=== PATIENT | female | born 1950 | race African-American/Black ===

== ENCOUNTER → 2017-03-16 | Outpatient (CLI) | payer MEDICARE, MEDICAID ==
--- NOTE | 2017-03-17 09:27 | WOMENS IMAGING REPORT ---
EXAM DESCRIPTION: BILAT SCREENING MAMMO W/CAD COMPLETED DATE/TIME: 03/16/2017 9:12 am REASON FOR STUDY: ROUTINE SCREENING; Z12.31 Z12.31 ENCNTR SCREEN MAMMOGRAM FOR MALIGNANT NEOPLASM O F MAGGIE COMPARISON: None. TECHNIQUE: Standard craniocaudal and mediolateral oblique views of each breast recorded using Serometrixa l acquisition. LIMITATIONS: None. FINDINGS: No masses, calcifications or architectural distortion. No areas of suspicion. Read with the assistance of CAD. .[facility] - R2 Cenova Version 1.3 .[facility] - R2 Cenova Version 1.3 .[facility] - R2 Cenova Version 2.4 .[facility] [place] Cenova Version 2.4 .[facility] - R2 Bottom Filler Version 9.2 IMPRESSION: NORMAL MAMMOGRAM. BIRADS 1. BREAST DENSITY: b. There are scattered areas of fibroglandular density. BIRAD: 1 NEGATIVE RECOMMENDATION: ROUTINE SCREENING COMMENT: The patient has been notified of the results by letter per [place] requirements. Additional no tification policies are in place for contacting patient with suspicious or incomplete findings. Quality ID #[id number]: The [employer] recommends an annual screening mammogram for women aged 40 years or over. This facility utilizes a reminder system to ensure that all patients receive reminder letters, and/or direct phone calls for appointments. This includes reminders for routine scr eening mammograms, diagnostic mammograms, or other Breast Imaging Interventions when appropriate. Th is patient will be placed in the appropriate reminder system. The [employer] (ACR) has developed recommendations for screening MRI of the breast s in certain patient populations, to be used in conjunction with mammography. Breast MRI surveillanc e may be appropriate for women with more than 20% lifetime risk of developing breast cancer as deter mined by genetic testing, significant family history of the disease, or history of mantle radiation f or Hodgkins Disease. ACR Practice Guidelines 2008. TECHNICAL DOCUMENTATION: FINDING NUMBER: (1) ASSESSMENT: (1) JOB ID: [id number] [employer]- All Rights Reserved
== END ==
LOC: WI 08:51
PROVIDERS: ATTEND Family Medicine
DX: Z12.31 Encounter for screening mammogram for malignant neoplasm of breast (principal)
CPT/HCPCS: 77067; G0202

== ENCOUNTER → 2018-02-05 | Outpatient (CLI) | payer MEDICARE, MEDICAID ==
--- NOTE | 2018-02-05 10:40 | RADIOLOGY REPORT (SQ) ---
EXAM DESCRIPTION: CHEST PA/LATERAL COMPLETED DATE/TIME: 02/05/2018 10:28 am REASON FOR STUDY: CHRONIC COUGH X 1 MONTH, RT SIDED CHEST PAIN COMPARISON: 09/27/2009 EXAM PARAMETERS: NUMBER OF VIEWS: two views TECHNIQUE: Digital Frontal and Lateral radiographic views of the chest acquired. RADIATION DOSE: NA LIMITATIONS: none FINDINGS: LUNGS AND PLEURA: No opacities, masses or pneumothorax. No pleural effusion. MEDIASTINUM AND HILAR STRUCTURES: No masses or contour abnormalities. HEART AND VASCULAR STRUCTURES: Heart normal size. No evidence for failure. BONES: No acute findings. HARDWARE: None in the chest. OTHER: No other significant finding. IMPRESSION: NO SIGNIFICANT RADIOGRAPHIC FINDING IN THE CHEST. TECHNICAL DOCUMENTATION: JOB ID: [id number] [employer]- All Rights Reserved Reading location - IP/workstation name: [email or web address]
== END ==
LOC: OD 10:10
PROVIDERS: ATTEND Internal Medicine Cardiovascular Disease
DX: R05 Cough (principal); R07.9 Chest pain, unspecified
CPT/HCPCS: 71046

== ENCOUNTER 2018-05-29 15:46 | Emergency (ER) | payer MEDICARE, MEDICAID ==
[2018-05-29] MEDS ORDERED: ACETAMINOPHEN 325 MG TABLET PO ONE (16:22)
[2018-05-29 16:48] LABS: APPEARANCE,URINE SLIGHTLY-CLOUDY; BILIRUBIN,URINE NEGATIVE (NEGATIVE); COLOR,URINE YELLOW; GLUCOSE, URINE NEGATIVE (NEGATIVE); KETONES,URINE NEGATIVE (NEGATIVE); LEUKOCYTE ESTERASE,URINE SMALL (NEGATIVE); NITRITE,URINE NEGATIVE (NEGATIVE); PROTEIN,URINE NEGATIVE (NEGATIVE); UROBILINOGEN,URINE NEGATIVE mg/dL (<2.0)
--- NOTE | 2018-05-29 16:48 | RADIOLOGY REPORT (SQ) ---
EXAM DESCRIPTION: HIP RIGHT AP/LATERAL COMPLETED DATE/TIME: 05/29/2018 4:39 pm REASON FOR STUDY: pain started last night COMPARISON: None. NUMBER OF VIEWS: Two views. TECHNIQUE: AP pelvis and additional frog-leg view of the right hip. LIMITATIONS: None. FINDINGS: MINERALIZATION: Normal. RIGHT HIP: No acute fracture. Marked degenerative changes of the right hip with marked joint space n arrowing and large osteophytes. Reactive sclerosis of the acetabulum. Underlying pincer type femoro acetabular impingement. LEFT HIP: No fracture or dislocation. No worrisome bone lesions. PUBIS AND ISCHIUM: No fracture. PELVIS: No fracture. SACRUM: No fracture or dislocation. No worrisome bone lesions. LOWER LUMBAR SPINE: No fracture or dislocation. No worrisome bone lesions. No significant disc disea se. SOFT TISSUES: IUD in the expected location of the uterus. . OTHER: No other significant finding. 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 TECHNICAL DOCUMENTATION: JOB ID: [id number] [employer]- All Rights Reserved Reading location - IP/workstation name: [email or web address]
[2018-05-29 17:19] VITALS: BP 195/94
--- NOTE | 2018-05-29 17:19 | ER Document Report ---
ED Hip Pain/Injury - General Chief Complaint: Hip Pain Stated Complaint: SHARP PAIN IN PELVIC/HIP AREA Time Seen by Provider: 05/29/18 16:09 Mode of Arrival: Ambulatory Information source: Patient Notes: 67-year-old female presents to ED for complaint of right hip pain started yesterday. She states the pain was worse again this morning. She states she is now fallen or injured herself. Patient is alert and oriented respirations regular and unlabored and able to ambulate. She states it is painful to walk. TRAVEL OUTSIDE OF THE [place] IN LAST 30 DAYS: No - HPI Patient complains to provider of: Pain, Hip. No: Injury Where: Home Onset/Duration: Sudden, Intermittent Quality of pain: Sharp, Throbbing Severity: Severe Pain Level: 5 Symptoms prior to fall: None Symptoms since fall: None Skin Color: Normal Rotation of extremity: None Pain with palpation of the pelvis: Yes Associated Symptoms: None - Related Data Allergies/Adverse Reactions: levofloxacin [From Levaquin] Allergy (Verified 08/18/14 18:32) Past Medical History - General Information source: Patient - Social History Smoking Status: Former Smoker Cigarette use (# per day): No Chew tobacco use (# tins/day): No Smoking Education Provided: No Frequency of alcohol use: None Drug Abuse: None Family History: Reviewed & Not Pertinent Patient has suicidal ideation: No Patient has homicidal ideation: No - Past Medical History Cardiac Medical History: Reports: Hx Congestive Heart Failure, Hx Hypercholesterolemia, Hx Hypertension Pulmonary Medical History: Reports: Hx Asthma, Hx COPD EENT Medical History: Reports: None Neurological Medical History: Reports: None Endocrine Medical History: Reports: None Renal/ Medical History: Reports: Hx Renal Insufficiency Malignancy Medical History: Reports: None GI Medical History: Reports: None Musculoskeletal Medical History: Reports None Skin Medical History: Reports None Psychiatric Medical History: Reports: None Traumatic Medical History: Reports: None Infectious Medical History: Reports: None Past Surgical History: Reports: Hx Breast Surgery - L breast, Hx Section Review of Systems - Review of Systems Constitutional: No symptoms reported EENT: No symptoms reported Cardiovascular: No symptoms reported Respiratory: No symptoms reported Gastrointestinal: No symptoms reported Genitourinary: No symptoms reported Female Genitourinary: No symptoms reported Musculoskeletal: Joint pain - Hip pain/right pelvic pain Skin: No symptoms reported Hematologic/Lymphatic: No symptoms reported Neurological/Psychological: No symptoms reported -: Yes All other systems reviewed and negative Physical Exam - Vital signs Vitals: Temp Pulse Resp BP Pulse Ox 98.4 F 72 18 186/97 H 97 05/29/18 16:02 05/29/18 16:02 05/29/18 16:02 05/29/18 16:02 05/29/18 16:02 Interpretation: Normal - General General appearance: Appears well, Alert - HEENT Head: Normocephalic, Atraumatic Eyes: Normal Pupils: PERRL - Respiratory Respiratory status: No respiratory distress Chest status: Nontender Breath sounds: Normal Chest palpation: Normal - Cardiovascular Rhythm: Regular Heart sounds: Normal auscultation Murmur: No - Abdominal Inspection: Normal Distension: No distension Bowel sounds: Normal Tenderness: Nontender Organomegaly: No organomegaly - Back Back: Normal, Nontender - Extremities General upper extremity: Normal inspection, Nontender, Normal color, Normal ROM , Normal temperature General lower extremity: Normal inspection, Nontender, Normal color, Normal ROM , Normal temperature, Normal weight bearing. No: Abelardo's sign Hip: Tender, Pain with ROM. No: Abrasion, Deformity, Dislocation, Ecchymosis, Instability, Laceration, Unable to bear weight Thigh: Normal, Tender - Proximal Knee: Normal Calf: Normal - Neurological Neuro grossly intact: Yes Cognition: Normal Orientation: AAOx4 Farrah Coma Scale Eye Opening: Spontaneous Farrah Coma Scale Verbal: Oriented Farrah Coma Scale Motor: Obeys Commands [place] Coma Scale Total: 15 Speech: Normal Motor strength normal: LUE, RUE, LLE, RLE Sensory: Normal - Psychological Associated symptoms: Normal affect, Normal mood - Skin Skin Temperature: Warm Skin Moisture: Dry Skin Color: Normal Course - Re-evaluation Re-evalutation: 05/29/18 17:38 Discussed x-ray with patient and written report given to patient. Patient instructed to follow-up with primary doctor tomorrow and schedule an appointment with orthopedic as soon as possible. Patient has end-stage arthritis to the hip joint. Discussed patient's blood pressure with her and the need to follow-up with primary doctor concerning the blood pressure of 195/ 95. Patient states she does take blood pressure medications and she will call her doctor first thing in the morning. Consulted Dr. Chun with results and she stated patient just needs to return to her primary doctor and orthopedics. - Vital Signs Vital signs: Temp Pulse Resp BP Pulse Ox 98.5 F 65 18 195/94 H 100 05/29/18 17:18 18 17:18 18 17:18 18 17:18 18 17:18 - Laboratory Laboratory results interpreted by me: 05/29/18 16:08 Ur Leukocyte Esterase SMALL H - Diagnostic Test Radiology reviewed: Image reviewed, Reports reviewed Discharge - Discharge Clinical Impression: Hip pain, right, Arthritis of right hip Condition: Stable Disposition: HOME, SELF-CARE Additional Instructions: Arthritis Your symptoms are due to arthritis. Arthritis is an inflammation of the joints. There are many types -- osteoarthritis (due to "wear and tear"), auto- immmune arthritis (such as rheumatoid, lupus, Leah's, and others), and crystal -induced arthritis (such as gout and pseudogout). The physician's examination, combined with laboratory tests, will determine the cause of your arthritis. All types of arthritis are treated with antiinflammatory medications. Other medication may be required for special types of arthritis, or if your problem does not respond to the antiinflammatory medicine. Local warmth may be helpful. Move the involved joints through the full range of motion daily. Mild exercise is usually still possible for most persons with arthritis (ask your physician). Swimming provides good exercise without damaging the joints. Contact the physician if you are worsening in any way. I have discussed your x-ray report with you and given you a written report. Please follow-up with your primary doctor tomorrow via telephone to schedule a follow-up appointment. Please have your primary doctor set up a referral to orthopedics for your severe arthritis to the right hip. Anti-inflammatory medications will help the pain at this time. Ibuprofen Ibuprofen is an excellent, safe drug for pain control. In addition, it has potent antiinflammatory effects which are beneficial, especially in the treatment of injuries, arthritis, or tendonitis. It's best to take ibuprofen with food. Persons with ulcer disease or allergy to aspirin should notify their physician of this before taking ibuprofen. Take the medication exactly as prescribed. Don't take additional doses unless instructed to do so by your doctor. If you develop wheezing, shortness of breath, hives, faintness, stomach pain, vomiting, or dark black stools, return for re-evaluation at once. FOLLOW-UP CARE: If you have been referred to a physician for follow-up care, call the physician s office for an appointment as you were instructed or within the next two days. If you experience worsening or a significant change in your symptoms, notify the physician immediately or return to the Emergency Department at any time for re-evaluation. Forms: Elevated Blood Pressure Referrals: MICK BILLINGSLEY MD [Primary Care Provider] - Follow up as needed [facility] [Provider Group] - Follow up as needed
== END 2018-05-29 17:36 | disposition home or self-care (01) ==
LOC: ER 15:46
DX: M16.11 Unilateral primary osteoarthritis, right hip (principal); I50.9 Heart failure, unspecified; E78.00 Pure hypercholesterolemia, unspecified; I11.0 Hypertensive heart disease with heart failure
CPT/HCPCS: 99283; 87086; 87088; 81001; 87186; 73502; A9270

== ENCOUNTER 2019-06-22 06:05 | Observation (INO) | payer MEDICARE, MEDICAID ==
--- NOTE | 2019-06-22 08:39 | ER Document Report ---
ED General - General Chief Complaint: Rectal Bleeding Stated Complaint: RECTAL BLEEDING Time Seen by Provider: 06/22/19 08:27 Primary Care Provider: MICK BILLINGSLEY MD [Primary Care Provider] - Follow up as needed TRAVEL OUTSIDE OF THE [place] IN LAST 30 DAYS: No - HPI Notes: Patient is a 69-year-old female who presents emergency department for evaluation of rectal bleeding. She states that on night she got home from visiting her daughter. Upon arriving home she had a loose stool, noticed maroon blood in the toilet. She states that she has had more frequent bowel movements over the last 72 hours, every time she notices blood in the stool and on the paper. She states he had a colonoscopy back in 2010 or 2011, she is unsure. She states that no abnormalities were found at that time. She denies any other associated pain. No abnormal travel recently. She is been eating and drinking normally. Urinating normally. No fevers or chills. She denies any bleeding between these bowel movements. - Related Data Allergies/Adverse Reactions: levofloxacin [From Levaquin] Allergy (Verified 08/18/14 18:32) Past Medical History - General Information source: Patient - Social History Smoking Status: Former Smoker Family History: Reviewed & Not Pertinent Patient has suicidal ideation: No Patient has homicidal ideation: No - Past Medical History Cardiac Medical History: Reports: Hx Congestive Heart Failure, Hx Hypercholesterolemia, Hx Hypertension Pulmonary Medical History: Reports: Hx Asthma, Hx COPD Renal/ Medical History: Reports: Hx Renal Insufficiency. Denies: Hx Peritoneal Dialysis Past Surgical History: Reports: Hx Breast Surgery - L breast, Hx Section Review of Systems - Review of Systems Constitutional: No symptoms reported EENT: No symptoms reported Cardiovascular: No symptoms reported Respiratory: No symptoms reported Gastrointestinal: See HPI Genitourinary: No symptoms reported Musculoskeletal: No symptoms reported Skin: No symptoms reported Neurological/Psychological: No symptoms reported Physical Exam - Vital signs Vitals: Temp Pulse Resp BP Pulse Ox 97.6 F 100 18 192/98 H 97 06/22/19 06:19 06/22/19 06:19 06/22/19 06:19 06/22/19 06:19 06/22/19 06:19 - Notes Notes: Vital signs reviewed, please refer to chart. Head is normocephalic, atraumatic. Pupils equal round, reactive to light. Neck is supple without meningismus. Heart is regular rate and rhythm. Lungs are clear to auscultation bilaterally. Abdomen is soft, nontender, normoactive bowel sounds throughout. Extremities without cyanosis, clubbing. Posterior calves are nontender. Peripheral pulses are equal. Skin is warm and dry. Patient is awake, alert, neurological exam is nonfocal. Rectal exam performed with Imelda CHÁVEZ. No gross visible abnormalities at the rectum with the exception of small skin tags. Digital rectal exam revealed no masses. Maroon stool which was heme positive. Course - Re-evaluation Re-evalutation: 06/22/19 11:47 Patient presents to the emergency department for evaluation. She complains of lower GI bleeding. She has absolutely no abdominal tenderness. Her rectal exam does reveal continued bleeding. She has an anemia here, last hemoglobin for comparison was over 2 years ago. The patient remains hemodynamically stable. She still does not have any pain. I am concerned, however, because of the continued bleeding. Certainly diverticular bleeding is on the differential. At this point, I spoke with the internal medicine team, and she was accepted for admission. - Vital Signs Vital signs: Temp Pulse Resp BP Pulse Ox 98.2 F 86 18 163/81 H 100 06/22/19 11:23 06/22/19 11:23 06/22/19 11:23 06/22/19 11:23 06/22/19 11:23 - Laboratory Result Diagrams: 06/22/19 08:39 06/22/19 08:39 Laboratory results interpreted by me: 06/22/19 06/22/19 08:39 08:39 RBC 3.12 L Hgb 9.7 L Hct 28.9 L RDW 14.6 H Potassium 3.5 L Chloride 108 H BUN 23 H Albumin 3.3 L Discharge - Discharge Clinical Impression: Lower GI bleed Anemia Qualifiers: Anemia type: unspecified type Qualified Code(s): D64.9 - Anemia, unspecified Condition: Stable Disposition: ADMITTED INPATIENT Admitting Provider: [place] (Hospitalist) - Don Day PA there is I will keep an eye harassing use you can take Referrals: MICK BILLINGSLEY MD [Primary Care Provider] - Follow up as needed
[2019-06-22 08:48] LABS: ABSOLUTE LYMPHOCYTES (AUTO) 1.6 10^3/uL (0.5-4.7); ABSOLUTE MONOCYTES (AUTO) 0.5 10^3/uL (0.1-1.4); ABSOLUTE NEUT (AUTO) 4.1 10^3/uL (1.7-8.2); BASOPHILS % (AUTO) 0.5 % (0-2); EOSINOPHILS % (AUTO) 0.7 % (0-6); HEMATOCRIT 28.9 % (36.0-47.0); HEMOGLOBIN 9.7 g/dL (12.0-15.5); LYMPHOCYTES % (AUTO) 26.1 % (13-45); MEAN CORPUSCULAR HEMOGLOBIN 31.1 pg (27.0-33.4); MEAN CORPUSCULAR HGB CONC 33.6 g/dL (32.0-36.0); MEAN CORPUSCULAR VOLUME 93 fl (80-97); MONOCYTES % (AUTO) 7.6 % (3-13); PLATELET COUNT 210 10^3/uL (150-450); RED BLOOD COUNT 3.12 10^6/uL (3.72-5.28); RED CELL DISTRIBUTION WIDTH 14.6 % (11.5-14.0); SEGMENTED NEUTROPHILS % (AUTO) 65.1 % (42-78); TOTAL CELLS COUNTED % (AUTO) 100 %; WHITE BLOOD COUNT 6.3 10^3/uL (4.0-10.5)
[2019-06-22 08:55] LABS: INTERNATIONAL RATION (INR) 1.03; PROTHROMBIN TIME 13.5 SEC (11.4-15.4)
[2019-06-22 09:10] LABS: ALBUMIN 3.3 g/dL (3.5-5.0); ALKALINE PHOSPHATASE 86 U/L (38-126); ANION GAP 8 (5-19); ASPARTATE AMINO TRANSFERASE 19 U/L (14-36); BILIRUBIN,DIRECT 0.3 mg/dL (0.0-0.4); BILIRUBIN,TOTAL 0.5 mg/dL (0.2-1.3); BLOOD UREA NITROGEN 23 mg/dL (7-20); CALCIUM 9.4 mg/dL (8.4-10.2); CARBON DIOXIDE 28 mmol/L (22-30); CHLORIDE 108 mmol/L (98-107); GLUCOSE 103 mg/dL (75-110); POTASSIUM 3.5 mmol/L (3.6-5.0); TOTAL PROTEIN 6.9 g/dL (6.3-8.2)
[2019-06-22] MEDS ORDERED: ONDANSETRON HCL INJ/PF 4 MG/2 ML SDV IV PRN (13:01)
[2019-06-22] MEDS ORDERED: OXYCODONE-ACETAMINOPHEN 5-325 MG TABLET PO PRN (13:01)
[2019-06-22] MEDS ORDERED: ACETAMINOPHEN 325 MG TABLET PO PRN (13:01)
[2019-06-22] MEDS ORDERED: ONDANSETRON 4 MG TAB.RAPDIS PO PRN (13:01)
--- NOTE | 2019-06-22 13:29 | PDOC H&P ---
History of Present Illness Admission Date/PCP: 06/22/19 12:35 MICK BILLINGSLEY MD History of Present Illness: RAMIRO GUTIERRES is a 69 year old female who on night says that she had 2 "loose" stools, they were brown coloration as well as what appeared to be some bright red blood in them. On Monday yesterday she had 2 or 3 loose stools and once again there were brown with some fresh blood in the stools. No stools today but she has been passing gas today. Patient denies nausea she denies vomiting she has no pain. Patient states she is never had this problem before. She states about 7 or 8 years ago she had a colonoscopy done by someone here in [place] just as a routine study that was normal. Patient states she is currently hungry. Patient tells me her only other medical problem includes hypertension, according to the chart she is on no home medication for this. Patient is to be brought into the hospital for observation recheck of hemoglobin. I did speak to the general surgeon and he stated unless she was actively bleeding and/or hemodynamically unstable that she could have a colonoscopy done as an outpatient. Past Medical History Cardiac Medical History: Reports: Congestive Heart Failure, Hyperlipidema, Hyp ertension Pulmonary Medical History: Reports: Asthma, Chronic Obstructive Pulmonary Disease (COPD) Past Surgical History Past Surgical History: Reports: Section Social History Smoking Status: Former Smoker - Advance Directive Resuscitation Status: Full Code Family History Family History: Reviewed & Not Pertinent Parental Family History Reviewed: No Children Family History Reviewed: No Sibling(s) Family History Reviewed.: No Medication/Allergy Home Medications: Hydrocodone/Acetaminophen [Vansant 5-325 Tablet] 1 each PO Q4 PRN #20 tablet 08/18/14 Valacyclovir HCl [Valacyclovir] 1,000 mg PO TID #21 tablet 08/18/14 Allergies/Adverse Reactions: levofloxacin [From Levaquin] Allergy (Verified 08/18/14 18:32) Review of Systems Constitutional: ABSENT: chills, fever(s), headache(s), weight gain, weight loss Respiratory: ABSENT: cough, hemoptysis Gastrointestinal: PRESENT: hematochezia. ABSENT: abdominal pain, constipation, diarrhea, hematemesis, nausea, vomiting Neurological: ABSENT: abnormal gait, abnormal speech, confusion, dizziness, focal weakness, syncope Psychiatric: ABSENT: anxiety, depression, homidical ideation, suicidal ideation Physical Exam Vital Signs: Temp Pulse Resp BP Pulse Ox 98.2 F 86 18 163/81 H 100 06/22/19 11:23 06/22/19 11:23 06/22/19 11:23 06/22/19 11:23 06/22/19 11:23 Intake & Output 06/21/19 06/22/19 06/23/19 06:59 06:59 06:59 Weight 116.4 kg General appearance: PRESENT: no acute distress, other - Pleasant in no distress Neck exam: ABSENT: carotid bruit, JVD, lymphadenopathy, thyromegaly Respiratory exam: PRESENT: clear to auscultation corazon. ABSENT: rales, rhonchi, wheezes Cardiovascular exam: PRESENT: RRR. ABSENT: diastolic murmur, rubs, systolic murmur GI/Abdominal exam: PRESENT: hyperactive bowel sounds, soft Neurological exam: PRESENT: alert, awake, oriented to person, oriented to place, oriented to time, oriented to situation, CN II-XII grossly intact. ABSENT: motor sensory deficit Psychiatric exam: PRESENT: appropriate affect, normal mood. ABSENT: homicidal ideation, suicidal ideation Results Laboratory Results: 06/22/19 08:39 06/22/19 08:39 06/22/19 06/22/19 08:39 08:39 WBC 6.3 RBC 3.12 L Hgb 9.7 L Hct 28.9 L MCV 93 MCH 31.1 MCHC 33.6 RDW 14.6 H Plt Count 210 Seg Neutrophils % 65.1 Sodium 144.1 Potassium 3.5 L Chloride 108 H Carbon Dioxide 28 Anion Gap 8 BUN 23 H Creatinine 0.85 Est GFR ( Amer) > 60 Glucose 103 Calcium 9.4 Total Bilirubin 0.5 AST 19 Alkaline Phosphatase 86 Total Protein 6.9 Albumin 3.3 L Assessment and Plan - Diagnosis (1) Hypertension Is this a current diagnosis for this admission?: Yes (2) Obesity Is this a current diagnosis for this admission?: Yes (3) Anemia Qualifiers: Anemia type: unspecified type Qualified Code(s): D64.9 - Anemia, unspecified Is this a current diagnosis for this admission?: Yes (4) Lower GI bleed Is this a current diagnosis for this admission?: Yes - Plan Summary Summary: 06/22/2019 Patient is hemodynamically stable, most recent vital signs include temperature 98.2 pulse of 86 blood pressure 163/81 100% saturation on room air. White blood cell count 6.3 hemoglobin 9.7 hematocrit 28.9 and platelets 210,000 Was recent hemoglobin in the chart is from September 2016 which was 11.8, prior to that the highest is been is 12.5 back in 2014 I spoke to the general surgeon parts person Dr. Gaines, he stated that he would be happy to see the patient in consult but if the patient was hemodynamically stable and not actively bleeding, can see him as an outpatient and have a colonoscopy performed as an outpatient. I am going to put the patient in the hospital with some gentle IV hydration, recheck labs, give po protonix. If she is stable in the morning I will probably discharge her to follow-up as an outpatient. She has had a colonoscopy done back in either [address] Traylor with [facility] gastroenterology, - Time Time Spent with patient: 35 or more minutes
[2019-06-22 14:29] LABS: APPEARANCE,URINE CLEAR; BILIRUBIN,URINE NEGATIVE (NEGATIVE); COLOR,URINE YELLOW; GLUCOSE, URINE NEGATIVE (NEGATIVE); KETONES,URINE 20 mg/dL (NEGATIVE); LEUKOCYTE ESTERASE,URINE NEGATIVE (NEGATIVE); NITRITE,URINE NEGATIVE (NEGATIVE); PROTEIN,URINE NEGATIVE (NEGATIVE); URINE SPECIFIC GRAVITY 1.019; UROBILINOGEN,URINE NEGATIVE mg/dL (<2.0)
[2019-06-22] MEDS: DOCUSATE SODIUM 100 MG CAPSULE PO SCH (14:32)
[2019-06-22] MEDS: NORMAL SALINE 1000 ML 1,000 ML IV PRN (14:33)
[2019-06-22] MEDS: PANTOPRAZOLE SODIUM 40 MG TABLET.DR PO SCH (16:38)
[2019-06-22 18:39] LABS: ABSOLUTE EOSINOPHILS # (AUTO) 0.1 10^3/uL (0.0-0.6); ABSOLUTE LYMPHOCYTES (AUTO) 2.6 10^3/uL (0.5-4.7); ABSOLUTE MONOCYTES (AUTO) 0.6 10^3/uL (0.1-1.4); BASOPHILS % (AUTO) 0.5 % (0-2); EOSINOPHILS % (AUTO) 0.8 % (0-6); HEMATOCRIT 28.2 % (36.0-47.0); HEMOGLOBIN 9.5 g/dL (12.0-15.5); LYMPHOCYTES % (AUTO) 31.4 % (13-45); MEAN CORPUSCULAR HGB CONC 33.6 g/dL (32.0-36.0); MEAN CORPUSCULAR VOLUME 92 fl (80-97); MONOCYTES % (AUTO) 7.7 % (3-13); PLATELET COUNT 220 10^3/uL (150-450); RED BLOOD COUNT 3.06 10^6/uL (3.72-5.28); SEGMENTED NEUTROPHILS % (AUTO) 59.6 % (42-78); TOTAL CELLS COUNTED % (AUTO) 100 %; WHITE BLOOD COUNT 8.4 10^3/uL (4.0-10.5)
[2019-06-22] MEDS ORDERED: CLONIDINE HCL 0.2 MG TABLET PO ONE (19:30)
[2019-06-22] MEDS ORDERED: HYDRALAZINE HCL 25 MG TABLET PO ONE (19:30)
[2019-06-22] MEDS ORDERED: ATORVASTATIN CALCIUM 40 MG TABLET PO SCH (22:00)
[2019-06-23] MEDS: PANTOPRAZOLE SODIUM 40 MG TABLET.DR PO SCH ×2 (05:42→16:28)
[2019-06-23 06:30] LABS: ABSOLUTE EOSINOPHILS # (AUTO) 0.1 10^3/uL (0.0-0.6); ABSOLUTE LYMPHOCYTES (AUTO) 2.2 10^3/uL (0.5-4.7); ABSOLUTE MONOCYTES (AUTO) 0.5 10^3/uL (0.1-1.4); ABSOLUTE NEUT (AUTO) 3.7 10^3/uL (1.7-8.2); BASOPHILS % (AUTO) 0.6 % (0-2); EOSINOPHILS % (AUTO) 1.3 % (0-6); HEMATOCRIT 23.4 % (36.0-47.0); LYMPHOCYTES % (AUTO) 33.9 % (13-45); MEAN CORPUSCULAR HEMOGLOBIN 30.9 pg (27.0-33.4); MEAN CORPUSCULAR HGB CONC 33.4 g/dL (32.0-36.0); MEAN CORPUSCULAR VOLUME 92 fl (80-97); MONOCYTES % (AUTO) 8.3 % (3-13); PLATELET COUNT 197 10^3/uL (150-450); RED BLOOD COUNT 2.53 10^6/uL (3.72-5.28); RED CELL DISTRIBUTION WIDTH 14.8 % (11.5-14.0); SEGMENTED NEUTROPHILS % (AUTO) 55.9 % (42-78); TOTAL CELLS COUNTED % (AUTO) 100 %; WHITE BLOOD COUNT 6.5 10^3/uL (4.0-10.5)
[2019-06-23 06:32] LABS: HEMOGLOBIN 7.8 g/dL (12.0-15.5)
[2019-06-23 06:43] LABS: PROTHROMBIN TIME 14.2 SEC (11.4-15.4)
[2019-06-23 06:44] LABS: PARTIAL THROMBOPLASTIN TIME 27.4 SEC (23.5-35.8)
[2019-06-23 06:52] LABS: ANION GAP 5 (5-19); BLOOD UREA NITROGEN 20 mg/dL (7-20); CALCIUM 8.7 mg/dL (8.4-10.2); CARBON DIOXIDE 28 mmol/L (22-30); CHLORIDE 109 mmol/L (98-107); GLUCOSE 104 mg/dL (75-110); POTASSIUM 3.6 mmol/L (3.6-5.0)
[2019-06-23] MEDS ORDERED: HYDROCHLOROTHIAZIDE 25 MG TABLET PO SCH (08:00)
[2019-06-23] MEDS: NORMAL SALINE 1000 ML 1,000 ML IV PRN (08:02)
[2019-06-23] MEDS ORDERED: NORMAL SALINE 250 ML IV PRN ×2 (08:53)
--- NOTE | 2019-06-23 08:53 | PDOC PROGRESS REPORT ---
Subjective Progress Note for:: 06/23/19 Reason For Visit: HEME POSITIVE STOOLS,LOWER GI BLEED,HYPERTENSION, 06/23/2019 Heme positive stools, stable. Lower GI bleed, hypertension Physical Exam Vital Signs: Temp Pulse Resp BP Pulse Ox 98.3 F 65 18 133/65 H 97 06/23/19 07:51 06/23/19 07:51 06/23/19 07:51 06/23/19 07:51 06/23/19 07:51 Intake & Output 06/22/19 06/23/19 06/24/19 06:59 06:59 06:59 Intake Total 960 1000 Balance 960 1000 Weight 116.4 kg 118.3 kg General appearance: PRESENT: no acute distress, other - No complaints of pain no complaints of syncope or lightheaded Respiratory exam: PRESENT: clear to auscultation corazon. ABSENT: rales, rhonchi, wheezes Cardiovascular exam: PRESENT: RRR. ABSENT: diastolic murmur, rubs, systolic murmur Neurological exam: PRESENT: alert, awake, oriented to person, oriented to place, oriented to time, oriented to situation, CN II-XII grossly intact. ABSENT: motor sensory deficit Psychiatric exam: PRESENT: appropriate affect, normal mood. ABSENT: homicidal ideation, suicidal ideation Results Laboratory Results: 06/23/19 05:30 06/23/19 05:30 06/22/19 06/22/19 06/22/19 08:39 08:39 13:31 WBC 6.3 RBC 3.12 L Hgb 9.7 L Hct 28.9 L MCV 93 MCH 31.1 MCHC 33.6 RDW 14.6 H Plt Count 210 Seg Neutrophils % 65.1 Sodium 144.1 Potassium 3.5 L Chloride 108 H Carbon Dioxide 28 Anion Gap 8 BUN 23 H Creatinine 0.85 Est GFR ( Amer) > 60 Glucose 103 Calcium 9.4 Total Bilirubin 0.5 AST 19 Alkaline Phosphatase 86 Total Protein 6.9 Albumin 3.3 L Urine Color YELLOW Urine Appearance CLEAR Urine pH 5.0 Ur Specific [place] 1.019 Urine Protein NEGATIVE Urine Glucose (UA) NEGATIVE Urine Ketones 20 H Urine Blood LARGE H Urine Nitrite NEGATIVE Ur Leukocyte Esterase NEGATIVE Urine WBC (Auto) 1 06/22/19 06/23/19 06/23/19 18:10 05:30 05:30 WBC 8.4 6.5 RBC 3.06 L 2.53 L Hgb 9.5 L 7.8 L Hct 28.2 L 23.4 L MCV 92 92 MCH 31.0 30.9 MCHC 33.6 33.4 RDW 15.0 H 14.8 H Plt Count 220 197 Seg Neutrophils % 59.6 55.9 Sodium 141.9 Potassium 3.6 Chloride 109 H Carbon Dioxide 28 Anion Gap 5 BUN 20 Creatinine 0.87 Est GFR ( Amer) > 60 Glucose 104 Calcium 8.7 Total Bilirubin AST Alkaline Phosphatase Total Protein Albumin Urine Color Urine Appearance Urine pH Ur Specific [place] Urine Protein Urine Glucose (UA) Urine Ketones Urine Blood Urine Nitrite Ur Leukocyte Esterase Urine WBC (Auto) Assessment and Plan - Diagnosis (1) Hypertension Is this a current diagnosis for this admission?: Yes (2) Obesity Is this a current diagnosis for this admission?: Yes (3) Anemia Qualifiers: Anemia type: unspecified type Qualified Code(s): D64.9 - Anemia, unsp ecified Is this a current diagnosis for this admission?: Yes (4) Lower GI bleed Is this a current diagnosis for this admission?: Yes - Plan Summary Summary: 06/22/2019 Patient is hemodynamically stable, most recent vital signs include temperature 98.2 pulse of 86 blood pressure 163/81 100% saturation on room air. White blood cell count 6.3 hemoglobin 9.7 hematocrit 28.9 and platelets 210,000 Was recent hemoglobin in the chart is from September 2016 which was 11.8, prior to that the highest is been is 12.5 back in 2014 I spoke to the general surgeon tool design draftsperson Dr. Gaines, he stated that he would be happy to see the patient in consult but if the patient was hemodynamically stable and not actively bleeding, can see him as an outpatient and have a colonoscopy performed as an outpatient. I am going to put the patient in the hospital with some gentle IV hydration, recheck labs, give po protonix. If she is stable in the morning I will probably discharge her to follow-up as an outpa tient. She has had a colonoscopy done back in either [address] Traylor with [facility] gastroenterology, 06/23/2019 Vital signs are stable pulse 65, blood pressure 133/65, temperature 98.3. Patient's O2 saturation is 97% on room air Patient came in with a hemoglobin of 9.7 and 10 hours later it was 9.5. This morning it is 7.8. I a.m. going to give her 2 units of packed red cells and plan to discharge her to home afterwards if she is stable. That this will carry her through till she has her colonoscopy as an outpatient. Patient is stable she has no complaints at all. Going to have the nurse check her stool today for guaiac. I explained all this to the patient. - Time Time Spent with patient: 25-34 minutes
[2019-06-23] MEDS: CLONIDINE HCL 0.2 MG TABLET PO SCH ×2 (09:15→17:42)
[2019-06-23] MEDS: HYDRALAZINE HCL 25 MG TABLET PO SCH ×3 (09:19→17:42)
[2019-06-23] MEDS: DOCUSATE SODIUM 100 MG CAPSULE PO SCH (09:19)
[2019-06-23] MEDS ORDERED: CHOLECALCIFEROL (D3) 1,000 UNIT (25 MCG) TABLET PO SCH (10:00)
[2019-06-23] MEDS ORDERED: POTASSIUM CHLORIDE 10 MEQ TABLET.ER PO SCH (10:00)
[2019-06-23] MEDS ORDERED: ALBUTEROL SULFATE HFA (90 MCG/PUFF) 200 PUFF/8.5 GM MDI IH SCH (10:00)
[2019-06-23] MEDS ORDERED: LOSARTAN POTASSIUM 50 MG TABLET PO SCH (10:00)
[2019-06-23 20:12] LABS: HEMATOCRIT 28.7 % (36.0-47.0); HEMOGLOBIN 9.8 g/dL (12.0-15.5); MEAN CORPUSCULAR HEMOGLOBIN 31.2 pg (27.0-33.4); MEAN CORPUSCULAR HGB CONC 34.1 g/dL (32.0-36.0); MEAN CORPUSCULAR VOLUME 92 fl (80-97); PLATELET COUNT 188 10^3/uL (150-450); RED BLOOD COUNT 3.13 10^6/uL (3.72-5.28); RED CELL DISTRIBUTION WIDTH 15.5 % (11.5-14.0); WHITE BLOOD COUNT 8.7 10^3/uL (4.0-10.5)
[2019-06-23 20:33] VITALS: BP 192/98
--- NOTE | 2019-06-24 18:09 | PDOC DISCHARGE SUMMARY ---
Impression - Admit/DC Date/PCP Admission Date/Primary Care Provider: 06/22/19 12:35 MICK BILLINGSLEY MD Discharge Date: 06/23/19 - Discharge Diagnosis (1) Hypertension Is this a current diagnosis for this admission?: Yes (2) Obesity Is this a current diagnosis for this admission?: Yes (3) Anemia Is this a current diagnosis for this admission?: Yes (4) Lower GI bleed Is this a current diagnosis for this admission?: Yes - Assessment Summary: 06/22/2019 Patient is hemodynamically stable, most recent vital signs include temperature 98.2 pulse of 86 blood pressure 163/81 100% saturation on room air. White blood cell count 6.3 hemoglobin 9.7 hematocrit 28.9 and platelets 210,000 Was recent hemoglobin in the chart is from September 2016 which was 11.8, prior to that the highest is been is 12.5 back in 2014 I spoke to the general surgeon tester semiconductor packages Dr. Gaines, he stated that he would be happy to see the patient in consult but if the patient was hemodynamically stable and not actively bleeding, can see him as an outpatient and have a colon oscopy performed as an outpatient. I am going to put the patient in the hospital with some gentle IV hydration, recheck labs, give po protonix. If she is stable in the morning I will probably discharge her to follow-up as an outpatient. She has had a colonoscopy done back in either [address] Traylor with [facility] gastro[facility]ology, 06/23/2019 Vital signs are stable pulse 65, blood pressure 133/65, temperature 98.3. Patient's O2 saturation is 97% on room air Patient came in with a hemoglobin of 9.7 and 10 hours later it was 9.5. This morning it is 7.8. I a.m. going to give her 2 units of packed red cells and plan to discharge her to home afterwards if she is stable. That this will carry her through till she has her colonoscopy as an outpatient. Patient is stable she has no complaints at all. Going to have the nurse check her stool today for guaiac. I explained all this to the patient. 06/24/2019 Patient wanted to be discharged home late on the night of the after she received her 2 units Patient's hemoglobin came up to 9.8 following 2 units of blood She was discharged home to follow-up as an outpatient at approximately 8 p.m. At the time of discharge patient's temperature was 98 blood pressure 126/75 pulse was 73 oxygen saturation was 100% on room air Final diagnosis at the time of discharge, her GI bleed stable, pretension, obesity, anemia - Additional Information Resuscitation Status: Full Code Discharge Diet: As Tolerated Discharge Activity: Activity As Tolerated, Balance Activity w/Rest, Energy Conservation, Slowly Increase Activity Referrals: MICK BILLINGSLEY MD [Primary Care Provider] - 07/08/19 10:00 am (Dr. Billingsley will be out of town next week. .) Prescriptions: Ferrous Sulfate [Albafort] 325 mg PO BID 30 Days #60 tablet Pantoprazole Sodium [Protonix [address] Tablet] 40 mg PO QAM 30 Days #30 tablet. Home Medications: Albuterol Sulfate [Proair HFA Inhalation Aerosol 8.5 gm MDI] 1 puff IH BID 06/22/19 Atorvastatin Calcium [Lipitor 40 mg Tablet] 40 mg PO QHS 06/22/19 Cholecalciferol (Vitamin D3) [Vitamin D3 5000 unit Capsule] 5,000 unit PO DAILY 06/22/19 Clonidine HCl [Catapres 0.3 mg Tablet] 0.3 mg PO BID 06/22/19 Hydralazine HCl [Apresoline 25 mg Tablet] 25 mg PO TID 06/22/19 Hydrochlorothiazide [Hydrodiuril 25 mg Tablet] 25 mg PO QAM 06/22/19 Losartan Potassium [Cozaar 100 mg Tablet] 100 mg PO DAILY 06/22/19 Potassium Chloride 20 meq PO DAILY 06/22/19 Docusate Sodium [Colace 100 mg Capsule] 100 mg PO DAILY capsule 06/23/19 Ferrous Sulfate [Albafort] 325 mg PO BID 30 Days #60 tablet 06/23/19 Pantoprazole Sodium [Protonix [address] Tablet] 40 mg PO QAM 30 Days #30 tablet. 06/23/19 History of Present Illiness History of Present Illness: RAMIRO GUTIERRES is a 69 year old female who on night says that she had 2 "loose" stools, they were brown coloration as well as what appeared to be some bright red blood in them. On Monday yesterday she had 2 or 3 loose stools and once again there were brown with some fresh blood in the stools. No stools today but she has been passing gas today. Patient denies nausea she denies vomiting she has no pain. Patient states she is never had this problem before. She states about 7 or 8 years ago she had a colonoscopy done by someone here in [place] just as a routine study that was normal. Patient states she is currently hungry. Patient tells me her only other medical problem includes hypertension, according to the chart she is on no home medication for this. Patient is to be brought into the hospital for observation recheck of hemoglobin. I did speak to the general surgeon and he stated unless she was actively bleeding and/or hemodynamically unstable that she could have a colonoscopy done as an outpatient. Physical Exam Vital Signs: Temp Pulse Resp BP Pulse Ox 98.0 F 73 21 H 192/98 H 100 06/23/19 20:28 06/23/19 20:28 06/23/19 20:28 06/23/19 20:28 06/23/19 20:28 Intake & Output 06/23/19 06/24/19 06/25/19 06:59 06:59 06:59 Intake Total 960 3055 Balance 960 3055 Weight 118.3 kg Results Laboratory Results: WBC 8.7 10^3/uL (4.0-10.5) 06/23/19 19:46 RBC 3.13 10^6/uL (3.72-5.28) L 06/23/19 19:46 Hgb 9.8 g/dL (12.0-15.5) L 06/23/19 19:46 Hct 28.7 % (36.0-47.0) L 06/23/19 19:46 MCV 92 fl (80-97) 06/23/19 19:46 MCH 31.2 pg (27.0-33.4) 06/23/19 19:46 MCHC 34.1 g/dL (32.0-36.0) 06/23/19 19:46 RDW 15.5 % (11.5-14.0) H 06/23/19 19:46 Plt Count 188 10^3/uL (150-450) 06/23/19 19:46 Lymph % (Auto) 33.9 % (13-45) 06/23/19 05:30 [place] % (Auto) 8.3 % (3-13) 06/23/19 05:30 Eos % (Auto) 1.3 % (0-6) 06/23/19 05:30 Baso % (Auto) 0.6 % (0-2) 06/23/19 05:30 Absolute Neuts (auto) 3.7 10^3/uL (1.7-8.2) 06/23/19 05:30 Absolute Lymphs (auto) 2.2 10^3/uL (0.5-4.7) 06/23/19 05:30 Absolute Monos (auto) 0.5 10^3/uL (0.1-1.4) 06/23/19 05:30 Absolute Eos (auto) 0.1 10^3/uL (0.0-0.6) 06/23/19 05:30 Absolute Basos (auto) 0.0 10^3/uL (0.0-0.2) 06/23/19 05:30 Seg Neutrophils % 55.9 % (42-78) 06/23/19 05:30 PT 14.2 SEC (11.4-15.4) 06/23/19 05:30 INR 1.10 06/23/19 05:30 APTT 27.4 SEC (23.5-35.8) 06/23/19 05:30 Sodium 141.9 mmol/L (137-145) 06/23/19 05:30 Potassium 3.6 mmol/L (3.6-5.0) 06/23/19 05:30 Chloride 109 mmol/L (98-107) H 06/23/19 05:30 Carbon Dioxide 28 mmol/L (22-30) 06/23/19 05:30 Anion Gap 5 (5-19) 06/23/19 05:30 BUN 20 mg/dL (7-20) 06/23/19 05:30 Creatinine 0.87 mg/dL (0.52-1.25) 06/23/19 05:30 Est GFR ( Amer) > 60 (>60) 06/23/19 05:30 Est GFR (MDRD) Non-Af > 60 (>60) 06/23/19 05:30 Glucose 104 mg/dL (75-110) 06/23/19 05:30 Calcium 8.7 mg/dL (8.4-10.2) 06/23/19 05:30 Total Bilirubin 0.5 mg/dL (0.2-1.3) 06/22/19 08:39 Direct Bilirubin 0.3 mg/dL (0.0-0.4) 06/22/19 08:39 Neonat Total Bilirubin Not Reportable 06/22/19 08:39 Neonat Direct Bilirubin Not Reportable 06/22/19 08:39 Neonat Indirect Bili Not Reportable 06/22/19 08:39 AST 19 U/L (14-36) 06/22/19 08:39 ALT 10 U/L (<35) 06/22/19 08:39 Alkaline Phosphatase 86 U/L (38-126) 06/22/19 08:39 Total Protein 6.9 g/dL (6.3-8.2) 06/22/19 08:39 Albumin 3.3 g/dL (3.5-5.0) L 06/22/19 08:39 Urine Color YELLOW 06/22/19 13:31 Urine Appearance CLEAR 06/22/19 13:31 Urine pH 5.0 (5.0-9.0) 06/22/19 13:31 Ur Specific [place] 1.019 06/22/19 13:31 Urine Protein NEGATIVE mg/dL (NEGATIVE) 06/22/19 13:31 Urine Glucose (UA) NEGATIVE mg/dL (NEGATIVE) 06/22/19 13:31 Urine Ketones 20 mg/dL (NEGATIVE) H 06/22/19 13:31 Urine Blood LARGE (NEGATIVE) H 06/22/19 13:31 Urine Nitrite NEGATIVE (NEGATIVE) 06/22/19 13:31 Urine Bilirubin NEGATIVE (NEGATIVE) 06/22/19 13:31 Urine Urobilinogen NEGATIVE mg/dL (<2.0) 06/22/19 13:31 Ur Leukocyte Esterase NEGATIVE (NEGATIVE) 06/22/19 13:31 Urine WBC (Auto) 1 /HPF 06/22/19 13:31 Urine Bacteria (Auto) 3+ /HPF 06/22/19 13:31 Squamous Epi Cells Auto 1 /HPF 06/22/19 13:31 Urine Mucus (Auto) RARE /LPF 06/22/19 13:31 Urine Ascorbic Acid NEGATIVE (NEGATIVE) 06/22/19 13:31 POC Stool Occult Blood POSITIVE (NEGATIVE) 06/22/19 10:58 Blood Type O POSITIVE 06/23/19 09:10 Blood Type Confirm O POSITIVE 06/23/19 09:50 Antibody Screen NEGATIVE 06/23/19 09:10 Crossmatch See Detail 06/23/19 09:10 Stroke Is this a Stroke Patient?: No Acute Heart Failure - Is this a Heart Failure Patient?: No
== END 2019-06-23 21:00 | disposition home or self-care (01) ==
LOC: ER 06:05 → EH 12:35 → INTOOBSV 12:35 → 3W 13:45
PROVIDERS: ADMIT Hospitalist; ATTEND Hospitalist
DX: K92.1 Melena (principal); D64.9 Anemia, unspecified; I10 Essential (primary) hypertension; E66.9 Obesity, unspecified; J44.9 Chronic obstructive pulmonary disease, unspecified; E78.5 Hyperlipidemia, unspecified; Z79.899 Other long term (current) drug therapy; Z87.891 Personal history of nicotine dependence
CPT/HCPCS: 99284; 86900; 86901; 36415 ×2; 36430; 86850; 85025 ×2; 85610 ×2; 85730; 80048; 80053; 81001; 86920; 94660; P9016; A9270 ×13; J7030 ×2; J3490